=== PATIENT | male | born 1955 | race Caucasian/White ===

== ENCOUNTER 2018-01-02 15:19 | Observation (INO) ==
[2018-01-02] MEDS ORDERED: Aspirin 81 MG TAB.CHEW PO ONE (15:30)
[2018-01-02 16:09] LABS: Basophils % 0.7 %; Eosinophils # 0.3 K/mcL (0.0-0.6); Eosinophils % 4.1 %; Hematocrit 45.3 % (37.5-50.1); Hemoglobin 15.2 g/dL (12.9-16.9); Immature Granulocytes % 0.3 % (0-4); Lymphocytes # 1.7 K/mcL (0.6-4.6); Mean Corpuscular HGB Conc 33.6 g/dL (31.6-35.5); Mean Corpuscular Hemoglobin 29.2 pg (28.0-33.3); Mean Corpuscular Volume 86.9 fL (83.0-100.0); Monocytes # 0.7 K/mcL (0.0-1.3); Monocytes % 11.1 %; Neutrophils # 3.4 K/mcL (1.6-8.9); Platelet Count 171 K/mcL (140-400); Red Blood Count 5.21 M/mcL (4.19-5.50); Red Cell Distribution Width 13.2 % (11.5-14.5); Segmented Neutrophils % 55.8 %
--- NOTE | 2018-01-02 16:17 | Emergency Department Note ---
Disposition Clinical Impression: Chest pain Qualifiers: Chest pain type: unspecified Qualified Code(s): R07.9 - Chest pain, unspecified Disposition: Admitted As Inpatient Condition: Good Time of Disposition: 17:44 General Adult HPI - General Chief complaint: ED Chest Pain Stated complaint: chest tightness since 08:30 Time Seen by Provider: 01/02/18 15:26 Source: patient, family Limitations: no limitations Nursing Notes Reviewed: Yes Vital Signs Reviewed: Yes - History of Present Illness HPI Narrative: 62-year-old male with significant past medical history of high cholesterol and hypertension presenting to the emergency department with chief complaint of chest tightness. Patient states for the past 3-4 days he has had chest tightness with coughing congestion. He is concerned that he has an upper respiratory infection. Patient has no significant cardiac history. No history of stents or CABG. Patient denies any shortness of breath, nausea, vomiting or diaphoresis with these symptoms. 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 Pain Scale: 5 - Related Data Home Medications Medication Instructions Recorded Confirmed Aspirin Enteric Coated [Aspirin EC] 81 mg PO DAILY 12/02/15 12/02/15 Lisinopril [Lisinopril] 2.5 mg PO DAILY 01/02/18 01/02/18 Multivitamin [One Daily 1 each PO DAILY 01/02/18 01/02/18 Multivitamin] [place]-3/Dha/Epa/Fish Oil [Fish Oil 1,000 mg PO DAILY 01/02/18 01/02/18 1,000 mg Softgel] Simvastatin [Zocor] 20 mg PO HS 01/02/18 01/02/18 Allergies Allergy/AdvReac Type Severity Reaction Status Date / Time No Known Allergies Allergy Verified 01/02/18 15:20 All systems ED: reviewed and negative except as stated. Cardiovascular: Reports: chest pain Respiratory: Reports: cough Past Medical History - Past Medical History Attestation: Yes The following information was validated with the patient. Medical history: Reports: hyperlipidemia, hypertension Surgical history: Reports: no surgical history Psychiatric history: Reports: no psych history - Social History Smoking Status: Never smoker Smokeless Tobacco Status: No Alcohol use: Reports: none Drug use: Reports: none Physical Exam - General Limitations: no limitations General appearance: alert, in no apparent distress - Head Head exam: atraumatic, normocephalic, normal inspection - Eye Eye exam: Present: normal appearance. Absent: scleral icterus, conjunctival injection - ENT ENT exam: normal exam, mucous membranes moist - Neck Neck exam: Present: normal inspection, full ROM. Absent: tenderness, meningismus - Chest Chest inspection: Present: normal inspection, symmetric chest wall rise. Absent : tenderness, rash - Respiratory Respiratory exam: Present: normal lung sounds bilaterally. Absent: respiratory distress, wheezes - Cardiovascular Cardiovascular exam: Present: regular rate, normal rhythm, normal heart sounds - Abdominal Exam Abdominal exam: Present: soft, Non-Tender. Absent: distention, guarding, rebound - Extremities Exam Extremities exam: Present: normal inspection, full ROM - Neurological Exam Neurological exam: Present: alert, oriented X3 - Psychiatric Psychiatric exam: Present: normal affect, normal mood - Skin Skin exam: Present: warm, intact Course Course Narrative: 62-year-old male presenting to the emergency department complaining of chest pressure and concern for upper respiratory infection. Patient is alert and oriented 3 in the room with stable vital signs at this time. Denies any chest pain at this time. We will perform basic cardiac workup including chest x-ray, CBC, BMP, troponin and EKG. Patient agrees with this plan. Disposition pending results. - Reevaluation(s) Reevaluation #1: All patient's lab work has resulted is within normal limits. Patient's heart Square greater than 3. Patient has been having chest pain and been worked up as an outpatient that has not stress test or echo performed. We will admit The patient at this time for chest pain rule out. I spoke with the admitting physician Dr. Ceron who agrees to accept the patient at this time Vital Signs Temperature 98.8 F 01/02/18 15:20 Pulse Rate 74 01/02/18 15:20 Respiratory Rate 20 01/02/18 15:20 Blood Pressure 160/79 01/02/18 15:20 O2 Sat by Pulse Oximetry 81 01/02/18 15:20 Temperature 98.8 F 01/02/18 15:20 Pulse Rate 74 01/02/18 15:20 Respiratory Rate 20 01/02/18 15:20 Blood Pressure 160/79 01/02/18 15:20 O2 Sat by Pulse Oximetry 81 01/02/18 15:20 Oxygen Delivery Oxygen Delivery Room Air Medical Decision Making - Lab Data Result diagrams: 01/02/18 15:50 01/02/18 15:50 Lab Results 01/02/18 01/02/18 01/02/18 Range/Units 15:50 15:50 15:50 WBC 6.1 (4.3-11.1) K/mcL RBC 5.21 (4.19-5.50) M/mcL Hgb 15.2 (12.9-16.9) g/dL Hct 45.3 (37.5-50.1) % MCV 86.9 (83.0-100.0) fL MCH 29.2 (28.0-33.3) pg MCHC 33.6 (31.6-35.5) g/dL RDW 13.2 (11.5-14.5) % Plt Count 171 (140-400) K/mcL MPV 11.0 (9.4-12.4) fL Immature Gran % 0.3 (0-4) % Seg Neutrophils % 55.8 % Lymphocytes % 28.0 % Monocytes % 11.1 % Eosinophils % 4.1 % Basophils % 0.7 % Neutrophils # 3.4 (1.6-8.9) K/mcL Lymphocytes # 1.7 (0.6-4.6) K/mcL Monocytes # 0.7 (0.0-1.3) K/mcL Eosinophils # 0.3 (0.0-0.6) K/mcL Basophils # 0.0 (0.0-0.2) K/mcL Sodium 134 L (136-145) mEq/L Potassium 4.1 (3.5-5.1) mEq/L Chloride 104 (98-107) mEq/L Carbon Dioxide 27 (23-29) mEq/L BUN 15 (8-23) mg/dL Creatinine 1.29 (0.70-1.30) mg/dL Est GFR ( Amer) > 60 (> 60) Est GFR (Non-Af Amer) 57 L (> 60) BUN/Creatinine Ratio 12 (6-26) Glucose 81 (70-105) mg/dL Calculated Osmolality 278 L (280-300) Calcium 9.4 (8.6-10.3) mg/dL Troponin I < 0.03 (< 0.04) ng/mL - EKG Data EKG #1 EKG attestation: Yes I reviewed and interpreted this EKG. EKG results narrative: Sinus rhythm. 76 bpm. Left anterior fascicular block. CA interval 166, QRS 104, QTC 392. No signs of acute ST segment elevation or ischemia noted. Compared to previous EKG completed on 12/23/2017 no significant changes noted
[2018-01-02 16:31] LABS: BUN/Creatinine Ratio 12 (6-26); Blood Urea Nitrogen 15 mg/dL (8-23); Calcium 9.4 mg/dL (8.6-10.3); Carbon Dioxide 27 mEq/L (23-29); Chloride 104 mEq/L (98-107); Glucose 81 mg/dL (70-105); Osmolality,Calculated 278 (280-300); Potassium 4.1 mEq/L (3.5-5.1); Sodium 134 mEq/L (136-145); eGFR For Non-African Americans 57 (> 60)
--- NOTE | 2018-01-02 16:50 | Emergency Department Note ---
START Narrative - START START: I examined this patient and my medical decision-making was reviewed with the Resident Physician. I agree with the documented findings, disposition and treatment plan as described except to the extent set forth below. 8-year-old male presents to the ER for chest pain and pressure. Associated with nausea as well as hot sweats and diaphoresis and shortness of breath. Recent workup with a Holter monitor that did not show any significant abnormalities. That was done last week. He has noted increasing chest pressure today. States he does not feel well. He has an elevated heart score of 4. Patient likely would need to be admitted for further cardiac evaluation with possible stress test.
[2018-01-02] MEDS ORDERED: Acetaminophen 325 MG TABLET PO PRN (17:11)
[2018-01-02] MEDS ORDERED: Naloxone 0.4 MG/ML INJ IVP PRN (17:11)
--- NOTE | 2018-01-02 17:17 | Internal Med History&Physical ---
Date of Encounter: 01/02/18 Time of Encounter: 17:15 Assessment and Plan (1) Chest pain Current visit: Yes Status: Acute Admitted to hospitalist. We will put on telemetry. Check hemoglobin A1c and lipid panel. Sublingual nitroglycerin. Given aspirin 324 mg by mouth in the ED. Echocardiogram and stress test tomorrow morning. Nothing by mouth after midnight. Qualifiers: Chest pain type: unspecified Qualified Code(s): R07.9 - Chest pain, unspecified (2) Acute bronchitis Current visit: Yes Status: Acute patient has symptoms of acute bronchitis. Would benefit from a trial of zithromax. Rule out flu. Qualifiers: Bronchitis organism: unspecified organism Qualified Code(s): J20.9 - Acute bronchitis, unspecified (3) Hypertension Current visit: Yes Status: Acute Resume home antihypertensives Qualifiers: Hypertension type: essential hypertension Qualified Code(s): I10 - Essential (primary) hypertension (4) Hyperlipidemia Current visit: Yes Status: Acute Resume statin Qualifiers: Hyperlipidemia type: unspecified Qualified Code(s): E78.5 - Hyperlipidemia , unspecified (5) DVT prophylaxis Current visit: Yes Status: Acute Heparin subcutaneous Internal Medicine - H&P: HPI Chief complaint: Chest pain Admitted From: Emergency Dept Plans for Post Hospital Care: Home History of present illness: Mr. Merino is a 62 year old male with history of hypertension, hyperlipidemia presents with chest pain. Pain is about 5 out of 10. This is has been going on for about 3-4 days and worsening. It is on and off. No aggrevating or alleviating factors. The patient was evaluated for something like this in the outpatient setting by Dr. Romo and a Holter was done which was unremarkable. Reports chills, dry cough, and feeling congested with bodyaches. Denies any fever, blurry vision, headache, shortness of breath, abdominal pain, diarrhea, constipation, urinary symptoms, or neurological symptoms. In the emergency department the patient was hemodynamically stable. First set of troponins was within normal limits. EKG with no ST or T-wave changes. Laboratory workup was mostly unremarkable. Patient is being admitted for ACS rule out. Past Med Surg Social Fam HX - Past Medical History Medical history: hyperlipidemia, hypertension Psychiatric history: no psych history - Past Surgical History Surgical History: no surgical history - Social History Smoking Status: Never smoker Smokeless Tobacco Status: No Alcohol use: none Drug use: none Internal Medicine - H&P: Meds Aspirin Enteric Coated [Aspirin EC] 81 mg PO DAILY 12/02/15 [History] Lisinopril [Lisinopril] 2.5 mg PO DAILY 01/02/18 [History] Multivitamin [One Daily Multivitamin] 1 each PO DAILY 01/02/18 [History] [place]-3/Dha/Epa/Fish Oil [Fish Oil 1,000 mg Softgel] 1,000 mg PO DAILY 01/02/18 [History] Simvastatin [Zocor] 20 mg PO HS 01/02/18 [History] 3 Allergy/AdvReac Type Severity Reaction Status Date / Time No Known Allergies Allergy Verified 01/02/18 15:20 All Systems PM: A 10-system review of systems was performed and is negative for pertinent findings except as documented above in the HPI. Review of systems: All systems reviewed are negative except as mentioned above - Constitutional Vitals: Temp Pulse Resp BP Pulse Ox 98.8 F 74 20 160/79 81 01/02/18 15:20 01/02/18 15:20 01/02/18 15:20 01/02/18 15:20 01/02/18 15:20 Exam: GEN: NAD HEENT: AT, NC, No cyanosis, oral mucosa is moist, No JVD Lymphatics: No lymphadenoapthy Eyes: Extrocular muscles intact, anicteric CVS:RRR. S1, S2, No m/r/g RESP: CTAB ABD: Soft, NT, ND, +BS EXT: No edema, No rashes, 2+ DP NEURO: Nonfocal, CN II-XII intact, No focal motor or sensory deficits Psych: Cooperative, Not anxious or depressed Internal Med - H&P Results - Labs CBC & Chem 7: 01/02/18 15:50 01/02/18 15:50 Labs: Short CBC 01/02/18 Range/Units 15:50 WBC 6.1 (4.3-11.1) K/mcL Hgb 15.2 (12.9-16.9) g/dL Hct 45.3 (37.5-50.1) % Plt Count 171 (140-400) K/mcL Neutrophils # 3.4 (1.6-8.9) K/mcL BMP 01/02/18 15:50 Sodium 134 L Potassium 4.1 Chloride 104 Carbon Dioxide 27 BUN 15 Creatinine 1.29 Glucose 81 Calcium 9.4 Cardiac Enzymes 01/02/18 Range/Units 15:50 Troponin I < 0.03 (< 0.04) ng/mL - Impressions ITS Impressions Chest X-Ray 01/02/18 15:30 IMPRESSION: No acute cardiopulmonary process. D/ / Fco Hill MD / Fco Hill MD Interpreting Provider: Fco Hill MD
[2018-01-02] MEDS ORDERED: Azithromycin 250 MG TABLET PO SCH (17:45)
[2018-01-02 19:05] LABS: Chol/HDL Ratio 4.7 (0-4.9); Cholesterol 189 mg/dL (< 200); HDL Cholesterol 40 mg/dL (40-59); Triglycerides 429 mg/dL (< 150)
[2018-01-02 19:20] LABS: Hemoglobin A1C 5.3 %
[2018-01-02] MEDS: *HR* Heparin 5,000 UNIT/ML VIAL SQ SCH (21:56)
[2018-01-03 01:12] LABS: Adenovirus Not Detected (Not Detect); Coronavirus 229E Not Detected (Not Detect); Coronavirus HKU1 Not Detected (Not Detect); Coronavirus NL63 Not Detected (Not Detect); Coronavirus OC43 Not Detected (Not Detect); Human Metapneumovirus Not Detected (Not Detect); Human Rhinovirus/Enterovirus Not Detected (Not Detect)
[2018-01-03 01:13] LABS: Bordetella Pertussis Not Detected (Not Detect); Chlamydophila pneumoniae Not Detected (Not Detect); Influenza A Subtype 2009 H1 Not Detected (Not Detect); Influenza A Untypeable Not Detected (Not Detect); Influenza B Not Detected (Not Detect); Mycoplasma pneumoniae Not Detected (Not Detect); Parainfluenza Virus 1 Not Detected (Not Detect); Parainfluenza Virus 2 Not Detected (Not Detect); Parainfluenza Virus 3 Not Detected (Not Detect); Parainfluenza Virus 4 Not Detected (Not Detect); Respiratory Syncytial Virus Not Detected (Not Detect)
[2018-01-03] MEDS: *HR* Heparin 5,000 UNIT/ML VIAL SQ SCH ×2 (06:19→13:39)
[2018-01-03 06:43] LABS: Basophils % 0.4 %; Eosinophils # 0.2 K/mcL (0.0-0.6); Eosinophils % 3.3 %; Hematocrit 44.7 % (37.5-50.1); Hemoglobin 14.8 g/dL (12.9-16.9); Immature Granulocytes % 0.4 % (0-4); Lymphocytes # 1.7 K/mcL (0.6-4.6); Lymphocytes % 29.6 %; Mean Corpuscular HGB Conc 33.1 g/dL (31.6-35.5); Mean Corpuscular Hemoglobin 28.7 pg (28.0-33.3); Mean Corpuscular Volume 86.8 fL (83.0-100.0); Mean Platelet Volume 11.4 fL (9.4-12.4); Monocytes # 0.5 K/mcL (0.0-1.3); Monocytes % 8.2 %; Neutrophils # 3.3 K/mcL (1.6-8.9); Platelet Count 166 K/mcL (140-400); Red Blood Count 5.15 M/mcL (4.19-5.50); Segmented Neutrophils % 58.1 %
[2018-01-03 06:46] LABS: BUN/Creatinine Ratio 14 (6-26); Blood Urea Nitrogen 15 mg/dL (8-23); Calcium 9.4 mg/dL (8.6-10.3); Carbon Dioxide 25 mEq/L (23-29); Chloride 104 mEq/L (98-107); Glucose 101 mg/dL (70-105); Magnesium 2.1 mg/dL (1.6-2.6); Osmolality,Calculated 287 (280-300); Potassium 3.9 mEq/L (3.5-5.1); Sodium 138 mEq/L (136-145); eGFR For Non-African Americans > 60 (> 60)
[2018-01-03] MEDS ORDERED: Regadenoson 0.4 MG/5 ML SYRINGE IVP ONE (06:50)
[2018-01-03] MEDS ORDERED: Aspirin Enteric Coated 81 MG Tablet PO SCH (09:00)
[2018-01-03] MEDS ORDERED: (Omega-3/Dha/Epa/Fish Oil [Fish Oil 1,000 Mg Softgel] PO SCH (09:00)
[2018-01-03] MEDS ORDERED: Multivit/Ca/Min/Fe/FA 1 TAB TABLET PO SCH (09:00)
[2018-01-03 12:43] VITALS: BP 117/72
--- NOTE | 2018-01-03 13:52 | Discharge Summary ---
<Neema Alfred - Last Filed: 01/03/18 17:10> - NOTES TO OUTPATIENT PROVIDER Notes to Outpatient Provider: CT of the aorta showed: Stable appearing borderline ectatic ascending thoracic aorta measuring 4cm in diameter. No evidence for thoracic or abdominal aortic aneurysm or dissection. No acute infective or inflammatory process. Patient was placed on Azithromycin for 5 days for acute bronchitis. Orders not resulted at time of discharge: Pending orders 01/03/18 11:01 CT angio abdomen pelvis [CT] Routine Date of Encounter: 01/03/18 Time of Encounter: 11:50 - Discharge Diagnosis (1) Chest pain Priority: Primary Status: Acute Qualifiers: Chest pain type: unspecified Qualified Code(s): R07.9 - Chest pain, unspecified (2) Hypertension Priority: Secondary Status: Acute Qualifiers: Hypertension type: essential hypertension Qualified Code(s): I10 - Essential (primary) hypertension (3) Hyperlipidemia Priority: Secondary Status: Acute Qualifiers: Hyperlipidemia type: unspecified Qualified Code(s): E78.5 - Hyperlipidemia , unspecified (4) DVT prophylaxis Priority: Secondary Status: Acute (5) Acute bronchitis Priority: Secondary Status: Acute Qualifiers: Bronchitis organism: unspecified organism Qualified Code(s): J20.9 - Acute bronchitis, unspecified Hospital course: Mr. Merino is a 62 year old male with a past medical history of hypertension , hyperlipidemia presents with chest pain and was found to have acute bronchitis. EKG with no ST or T-wave changes. Troponins negative x 3. Echo 01/03 showed preserved EF 60-65% but a dilated aortic root measuring 4.1 cm at the level of the sinuses. Possible narrowing of aortic arch and proximal descending thoracic aorta. Due to this CT of aorta was obtained and showed stable appearing borderline ectatic ascending thoracic aorta measuring 4 cm in diameter. No evidence for thoracic or abdominal aortic aneurysm or dissection. Will need to follow-up with PCP concerning 4cm ascending aorta. Patient was started on azithromycin and given a 4 day prescription to complete a 5 day course for acute bronchitis. Patient was asymptomatic except for a cough and stable vitals at discharge. Patient was instructed to return the ED if new symptoms arise. Patient was also instructed to follow-up with his primary care physician in 2-3 days. Discharge discussed with: patient - Time Spent with Patient Total time spent providing and/or coordinating discharge services: - Discharge Medications Prescriptions: Azithromycin [Zithromax] 250 mg PO Q24H #4 tablet Home Medications: Aspirin Enteric Coated [Aspirin EC] 81 mg PO DAILY 12/02/15 [History] Lisinopril 2.5 mg PO DAILY 01/02/18 [History] Multivitamin [One Daily Multivitamin] 1 each PO DAILY 01/02/18 [History] [place]-3/Dha/Epa/Fish Oil [Fish Oil 1,000 mg Softgel] 1,000 mg PO DAILY 01/02/18 [History] Simvastatin [Zocor] 20 mg PO HS 01/02/18 [History] Azithromycin [Zithromax] 250 mg PO Q24H #4 tablet 01/03/18 [Rx] Allergies/Adverse Reactions: 3 Allergy/AdvReac Type Severity Reaction Status Date / Time No Known Allergies Allergy Verified 01/02/18 15:20 Date of admission: 01/02/18 17:13 Primary care physician: Dianna Heath MD Discharging clinician: Ariana Ceron Anticipated date of discharge: 01/03/18 - Constitutional Vitals: Temp Pulse Resp BP Pulse Ox 98.2 F 70 16 117/72 96 01/03/18 12:42 01/03/18 12:42 01/03/18 12:42 01/03/18 12:42 01/03/18 12:42 Exam: Constitutional: Alert, in no acute distress, well nourished, well developed. Head: Normocephalic, atraumatic, normal contour and symmetric, no masses, lesions or scars Heart: Normal, regular rate and rhythm, no murmurs Lungs: Clear to auscultation, no wheezes, rales, or rhonchi Abdomen: Soft, nondistended, nontender, and no masses palpable, bowel sounds present and normal, no guarding or rigidity. Extremities: No clubbing, cyanosis, or edema, radial pulse +2/4, capillary refill <2sec. Skin: Skin warm and dry, no lesions, no rashes, no jaundice Neurologic: Cranial nerves II through XII grossly intact, no focal deficits, strength within normal limits in all extremities Psych: Cooperative with exam, good eye contact, cognitive function intact, judgment good insight good, speech clear, thought process logical, and goal directed - Patient Status Disposition: Home, Self-Care Condition: Good Functional capacity at discharge: independent ambulation Overall status at discharge: patient is back to baseline - Discharge Instructions Instructions: Azithromycin (By mouth), Chest Pain (DC) Follow Up With: Dianna Heath MD [Primary Care Provider] - 01/10/18 11:00 am Additional Instructions: Please follow-up with your primary care physician in 2-3 days. 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 - Diet and Activity Activity: increase activity as tolerated Diet: advance to your usual diet <[email or web address] M - Last Filed: 01/03/18 21:36> Orders not resulted at time of discharge: Pending orders 01/03/18 11:01 CT angio abdomen pelvis [CT] Routine Date of Encounter: 01/03/18 - Discharge Diagnosis (1) Chest pain Status: Acute Qualifiers: Chest pain type: unspecified Qualified Code(s): R07.9 - Chest pain, unspecified (2) Acute bronchitis Status: Acute Qualifiers: Bronchitis organism: unspecified organism Qualified Code(s): J20.9 - Acute bronchitis, unspecified (3) Hypertension Status: Acute Qualifiers: Hypertension type: essential hypertension Qualified Code(s): I10 - Essential (primary) hypertension (4) Hyperlipidemia Status: Acute Qualifiers: Hyperlipidemia type: unspecified Qualified Code(s): E78.5 - Hyperlipidemia , unspecified (5) DVT prophylaxis Status: Acute Hospital course: Mr. Merino is a 62 year old male - Time Spent with Patient Total time spent providing and/or coordinating discharge services: Date of admission: 01/02/18 17:13 Primary care physician: Dianna Heath MD - Constitutional Vitals: Temp Pulse Resp BP Pulse Ox 98.2 F 70 16 117/72 96 01/03/18 12:42 01/03/18 12:42 01/03/18 12:42 01/03/18 12:42 01/03/18 12:42 - Attending Attestation I examined this patient and my medical decision-making was reviewed with the Resident Physician Dr. Alfred. I agree with the documented findings, disposition and treatment plan as described in the discharge summary except to the extent set forth below.
--- NOTE | 2018-01-04 18:35 | Electrocardiograph Report ---
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
== END 2018-01-03 14:44 | disposition home or self-care (01) ==
LOC: 3BNU 15:19 → EMEROO 15:19 → 3BNU 17:57
PROVIDERS: ADMIT Registered Nurse; ATTEND Registered Nurse